=== PATIENT | female | born 2000 | race Caucasian/White ===

== ENCOUNTER → 2020-08-23 | Outpatient (CLI) | payer MEDICAID | LOC: OD 09:52 | PROVIDERS: ATTEND Obstetrics & Gynecology | DX: O20.0 Threatened abortion (principal) | CPT/HCPCS: 36415; 84702; 86900; 86901 ==

== ENCOUNTER → 2020-08-28 | Outpatient (CLI) | payer MEDICAID | LOC: OD 12:23 | PROVIDERS: ATTEND Obstetrics & Gynecology | DX: O36.80X0 Pregnancy with inconclusive fetal viability, not applicable or unspecified (principal) | CPT/HCPCS: 36415; 84702; 86850 ==